=== PATIENT | female | born 1970 | race Caucasian/White ===

== ENCOUNTER 2020-08-22 07:58 | Outpatient (CLI) | payer OTHER, SELFPAY ==
--- NOTE | 2020-08-22 08:02 | MM_ITS ---
WS: [id number] BILATERAL SCREENING DIGITAL MAMMOGRAM WITH CAD HISTORY: SCREENING COMPARISON: 08/20/2019, 07/24/2018 and 07/17/2017 Bilateral CC and MLO views submitted. Computer aided detection analyzed. Breast composition: There are scattered areas of fibroglandular density. No suspicious masses, microc alcifications or architectural distortion. Small ill-defined and partially obscured asymmetries in th e anterior and inferior RIGHT breast are stable. Benign calcifications. MM/[place] [id number] IMPRESSION: BI-RADS: 2-Benign FOLLOW UP: 1 Year Follow-up
== END 2020-08-22 07:59 | disposition home or self-care (01) ==
LOC: RADSHAW 08:01
PROVIDERS: PCP Physician Assistant Medical; Visit Provider Nurse Practitioner Women's Health
DX: Z12.31 Encounter for screening mammogram for malignant neoplasm of breast (principal)
CPT/HCPCS: 77067

== ENCOUNTER 2021-09-15 07:42 | Outpatient (CLI) | payer OTHER, SELFPAY ==
--- NOTE | 2021-09-15 07:50 | MM_ITS ---
WS: [id number] Bilateral screening digital mammogram, 09/15/2021 Clinical Data: SCREENING Comparison: 08/22/2020, 08/20/2019, 07/24/2018, 07/17/2007, 07/11/2016, 07/06/2016, 07/19/2014, 06/28/2014, . Findings: The breast parenchymal pattern shows fibroglandular tissue. No spiculated masses or clustered calcifi cations are seen. There are no secondary signs of carcinoma. MM/[id number] Impression: 1. Negative bilateral mammogram unchanged. 2. Recommend annual screening mammograms. BIRADS: 1-Negative FOLLOW UP: 1 Year Follow-up The CAD railroad car checker was used.
== END 2021-09-15 07:43 | disposition home or self-care (01) ==
LOC: RADSHAW 07:47
PROVIDERS: PCP Physician Assistant Medical; Visit Provider Nurse Practitioner Women's Health
DX: Z12.31 Encounter for screening mammogram for malignant neoplasm of breast (principal)
CPT/HCPCS: 77067

== ENCOUNTER 2022-09-20 07:56 | Outpatient (CLI) | payer OTHER, SELFPAY ==
--- NOTE | 2022-09-20 08:03 | MM_ITS ---
WS: [id number] VIEWS: MLO and CC views both breasts. 3D digital tomosynthesis is also included in this exam. Comparison made with prior exam of 07/11/2016, 07/17/2017, 07/24/2018, 08/20/2019, 08/22/2020. 09/15/2021 .. Findings: There was no sign of mass, architectural distortion or suspicious calcification in either breast. Sc attered fibroglandular densities MM/[place] [id number] Impression: BI-RADS: 2-Benign FOLLOW-UP: 1 Year Follow-up This mammogram was also analyzed by the Computer Aided Detection System [employer].
== END 2022-09-20 07:57 | disposition home or self-care (01) ==
LOC: RAD 07:57
PROVIDERS: PCP Internal Medicine Nephrology; Visit Provider Nurse Practitioner Women's Health
DX: Z12.31 Encounter for screening mammogram for malignant neoplasm of breast (principal)
CPT/HCPCS: 77063; 77067

== ENCOUNTER → 2022-10-16 14:50 | Outpatient (BNVA) | payer OTHER, SELFPAY | PROVIDERS: PCP Internal Medicine Nephrology; Visit Provider Nurse Practitioner Women's Health | DX: Z12.11 Encounter for screening for malignant neoplasm of colon (principal); Z01.419 Encounter for gynecological examination (general) (routine) without abnormal findings; Z30.9 Encounter for contraceptive management, unspecified; Z30.42 Encounter for surveillance of injectable contraceptive | CPT/HCPCS: 87624 ==

== ENCOUNTER → 2022-12-19 13:00 | Outpatient (BNVA) | payer OTHER, SELFPAY | PROVIDERS: PCP Internal Medicine Nephrology; Visit Provider Nurse Practitioner Women's Health | DX: Z30.9 Encounter for contraceptive management, unspecified (principal) | CPT/HCPCS: 81025 ==

== ENCOUNTER 2023-10-17 07:44 | Outpatient (CLI) | payer OTHER, SELFPAY ==
--- NOTE | 2023-10-17 07:57 | MM_ITS ---
WS: [id number] Bilateral screening 3D tomosynthesis digital mammogram, 10/17/2023 Clinical Data: SCREENING Comparison: 09/20/2022, 09/15/2021, 08/22/2020, 08/20/2019, 07/24/2018, 07/17/2017, 07/11/2016, 07/06/2015, 07/19/2014, 06/28/2014, 06/16/2013. Findings: The breast parenchymal pattern shows fibroglandular tissue. No spiculated masses or clustered calcifi cations are seen. There are no secondary signs of carcinoma. There are scattered benign calcification s in both breasts. Impression: 1. Negative bilateral mammogram unchanged. 2. Recommend annual screening mammograms. MM/[place] [id number] BIRADS: 1-Negative FOLLOW UP: 1 Year Follow-up The CAD baggage checker was used.
== END 2023-10-17 07:45 | disposition home or self-care (01) ==
LOC: RAD 07:45
PROVIDERS: PCP Family Medicine; Visit Provider Nurse Practitioner Women's Health
DX: Z12.31 Encounter for screening mammogram for malignant neoplasm of breast (principal)
CPT/HCPCS: 77063; 77067

== ENCOUNTER 2024-10-20 07:44 | Outpatient (CLI) | payer OTHER, SELFPAY ==
--- NOTE | 2024-10-20 07:46 | MM_ITS ---
WS: [id number] Bilateral screening 3D tomosynthesis digital mammogram, 10/20/2024 8:14 AM Clinical Data: SCREENING Comparison: 10/17/2023, 09/20/2022, 09/15/2021, 08/22/2020, 08/20/2019, 07/24/2018, 07/17/2017, 6, 07/06/2015, 07/19/2014, 06/28/2014, 06/16/2013. Findings: No spiculated masses or clustered calcifications are seen. There are no secondary signs of carcinoma . There are scattered benign calcifications in both breasts. MM/MM scr [place] tomosynthesis [id number] Impression: Negative bilateral mammogram unchanged. Recommend annual screening mammograms. BIRADS: 1 - Negative. FOLLOW UP: 1 Year Follow-up DENSITY: There are scattered areas of fibroglandular density. The CAD cloth checker was used
== END 2024-10-20 07:45 | disposition home or self-care (01) ==
PROVIDERS: Absent Provider Nurse Practitioner Women's Health; PCP Family Medicine; Visit Provider Physician Assistant Medical
DX: Z12.31 Encounter for screening mammogram for malignant neoplasm of breast (principal); R92.1 Mammographic calcification found on diagnostic imaging of breast
CPT/HCPCS: 77063; 77067

== ENCOUNTER → 2024-12-17 15:44 | Outpatient (BNVA) | payer OTHER, SELFPAY | PROVIDERS: PCP Family Medicine; Visit Provider Nurse Practitioner Women's Health | DX: E55.9 Vitamin D deficiency, unspecified (principal); N91.2 Amenorrhea, unspecified | CPT/HCPCS: 82306; 82670; 83001 ==

== ENCOUNTER → 2025-07-22 16:40 | Outpatient (BNVA) | payer OTHER, SELFPAY | PROVIDERS: PCP Family Medicine; Visit Provider Nurse Practitioner Women's Health | DX: E55.9 Vitamin D deficiency, unspecified (principal) | CPT/HCPCS: 82306 ==

== ENCOUNTER → 2025-08-09 07:36 | Outpatient (BNVA) | payer OTHER, SELFPAY | PROVIDERS: PCP Family Medicine; Visit Provider Podiatrist Foot & Ankle Surgery | DX: M79.671 Pain in right foot (principal); M79.672 Pain in left foot; M21.611 Bunion of right foot; M21.612 Bunion of left foot; M20.41 Other hammer toe(s) (acquired), right foot; M20.42 Other hammer toe(s) (acquired), left foot | CPT/HCPCS: 73630 ==

== ENCOUNTER 2025-10-21 08:02 | Outpatient (CLI) | payer OTHER, SELFPAY ==
--- NOTE | 2025-10-21 08:07 | MM_ITS ---
WS: [id number] BILATERAL SCREENING DIGITAL TOMOSYNTHESIS MAMMOGRAM WITH CAD HISTORY: SCREENING COMPARISON: 10/20/2024, 10/17/2023, 08/22/2020 Bilateral CC and MLO views with tomosynthesis and synthetic mammography submitted. Computer aided detection analyzed. Breast composition: There are scattered areas of fibroglandular density. No suspicious masses, microcalcifications or architectural distortion. Benign calcifications in each breast. Long-term stability of a slight area of distortion in the mid LEFT breast. MM/MM scr tomosynthesis [id number] IMPRESSION: BI-RADS: 2 - Benign. FOLLOW UP: 1 Year Follow-up
== END 2025-10-21 08:03 | disposition home or self-care (01) ==
LOC: RAD 08:03
PROVIDERS: PCP Family Medicine; Visit Provider Family Medicine
DX: Z12.31 Encounter for screening mammogram for malignant neoplasm of breast (principal); R92.323 Mammographic fibroglandular density, bilateral breasts; R92.1 Mammographic calcification found on diagnostic imaging of breast
CPT/HCPCS: 77063; 77067